=== PATIENT | female | born 1955 | race African-American/Black ===

== ENCOUNTER 2025-02-15 00:52 | Inpatient (IN) | payer BC, OTHER ==
[2025-02-15 01:45] LABS: ABSOLUTE IMMATURE GRANULOCYTES 0.02 x10^3/uL (0.0-0.031); BASOPHILS # 0.01 x10^3/uL (0.01-0.08); EOSINOPHIL % 0.3 % (0.7-5.8); EOSINOPHILS # 0.02 x10^3/uL (0.04-0.36); HEMATOCRIT 36.1 % (34.1-44.9); HEMOGLOBIN 11.6 g/dL (11.2-15.7); MCHC 32.1 g/dl (32.2-35.5); MEAN CELL VOLUME 98.9 fl (79.4-94.8); MEAN PLT VOLUME 11.3 fl (9.4-12.3); MONOCYTE # 0.33 x10^3/uL (0.24-0.86); MONOCYTE % 5.5 % (4.7-12.5); PLATELET COUNT 209 x10^3/uL (182-369); RDW 12.7 % (12.4-16.4)
[2025-02-15 01:53] LABS: INR 1.08 (0.83-1.09); PROTHROMBIN TIME (PATIENT) 11.9 SEC (9.7-13.0)
[2025-02-15 01:56] LABS: ACTIVATED PTT 28.9 SECONDS (25.2-36.5)
[2025-02-15 02:20] LABS: POTASSIUM 4.2 mmol/L (3.5-5.1)
[2025-02-15 02:22] LABS: ALBUMIN 3.4 g/dl (3.4-5.0); BLOOD UREA NITROGEN 18.6 mg/dL (7-18); CALCIUM 9.3 mg/dL (8.5-10.1)
[2025-02-15 02:25] LABS: CREATININE 0.7 mg/dL (0.55-1.3)
[2025-02-15 02:27] LABS: BILIRUBIN,TOTAL 0.3 mg/dL (0.2-1); TOT PROT 6.3 g/dl (6.4-8.2)
[2025-02-15] MEDS: SODIUM CHLORIDE 0.9% 500 ML INFUS.BAG IV ONE (03:52)
[2025-02-15] MEDS: SODIUM CHLORIDE 1,000 ML IV SCH (04:38)
[2025-02-15 05:00] LABS: ABSOLUTE IMMATURE GRANULOCYTES 0.02 x10^3/uL (0.0-0.031); BASOPHILS # 0.02 x10^3/uL (0.01-0.08); EOSINOPHIL % 0.3 % (0.7-5.8); EOSINOPHILS # 0.02 x10^3/uL (0.04-0.36); HEMATOCRIT 34.1 % (34.1-44.9); HEMOGLOBIN 10.8 g/dL (11.2-15.7); MCHC 31.7 g/dl (32.2-35.5); MEAN CELL VOLUME 100.6 fl (79.4-94.8); MONOCYTE # 0.38 x10^3/uL (0.24-0.86); MONOCYTE % 5.5 % (4.7-12.5); PLATELET COUNT 169 x10^3/uL (182-369); RDW 12.7 % (12.4-16.4)
[2025-02-15 06:21] LABS: EPI CELLS 9.5 /uL (0-25.1); URINE RBC 7987.6 /uL (0-23.9); URINE WBC 21.4 /uL (0-25.8)
[2025-02-15 06:22] LABS: HYALINE CASTS 0.51 /uL (0-3.1); URINE APPEARANCE CLOUDY; URINE BACTERIA 1105.8 /uL (0-1359); URINE BILIRUBIN NEGATIVE (NEGATIVE); URINE COLOR RED; URINE GLUCOSE (UA) NEGATIVE (NEGATIVE)
[2025-02-15 06:23] LABS: PH,URINE 7.5 (5.0-8.0); URINE KETONE NEGATIVE (NEGATIVE); URINE PROTEIN 3+ (NEGATIVE); URINE UROBILINOGEN 0.2 mg/dL (0.2-1.0)
[2025-02-15 06:24] LABS: URINE LEUK ESTERASE TRACE (NEGATIVE); URINE NITRITE NEGATIVE (NEGATIVE)
[2025-02-15 09:53] LABS: ABSOLUTE IMMATURE GRANULOCYTES 0.01 x10^3/uL (0.0-0.031); BASOPHILS # 0.01 x10^3/uL (0.01-0.08); EOSINOPHIL % 0.2 % (0.7-5.8); EOSINOPHILS # 0.01 x10^3/uL (0.04-0.36); HEMATOCRIT 31.9 % (34.1-44.9); HEMOGLOBIN 9.8 g/dL (11.2-15.7); MCHC 30.7 g/dl (32.2-35.5); MEAN CELL VOLUME 100.9 fl (79.4-94.8); RDW 12.7 % (12.4-16.4)
[2025-02-15 09:55] LABS: MONOCYTE # 0.29 x10^3/uL (0.24-0.86); MONOCYTE % 4.7 % (4.7-12.5)
[2025-02-15] MEDS: HYDROCORTISONE ACETATE 25 MG/SUPP.RECT RC ONE (10:16)
[2025-02-15] MEDS: SERTRALINE HCL 25 MG TABLET (FP) PO SCH (10:23)
[2025-02-15] MEDS: metoPROLOL SUCCINATE 25 MG TAB.SR.24H (FP) PO SCH (10:23)
[2025-02-15] MEDS: PANTOPRAZOLE SODIUM 40 MG VIAL IVPUSH SCH (10:23)
[2025-02-15 10:32] LABS: MAGNESIUM 2.1 mg/dL (1.8-2.4)
[2025-02-15 10:35] LABS: MEAN PLT VOLUME 12.7 fl (9.4-12.3); PLATELET COUNT 114 x10^3/uL (182-369)
[2025-02-15 12:21] VITALS: BMI 28.3
[2025-02-15] MEDS: ACETAMINOPHEN 1000 MG/100 ML BAG IVPB PRN (14:15)
[2025-02-15 16:30] LABS: HEMATOCRIT 29.5 % (34.1-44.9); HEMOGLOBIN 9.1 g/dL (11.2-15.7); MCHC 30.8 g/dl (32.2-35.5); MEAN PLT VOLUME 11.7 fl (9.4-12.3); PLATELET COUNT 188 x10^3/uL (182-369); RDW 12.9 % (12.4-16.4)
[2025-02-15] MEDS: HYDROCORTISONE ACETATE 25 MG/SUPP.RECT RC SCH (21:37)
[2025-02-16 05:39] LABS: HEMOGLOBIN 9.5 g/dL (11.2-15.7); MCHC 31.7 g/dl (32.2-35.5); MEAN CELL VOLUME 99.3 fl (79.4-94.8); MEAN PLT VOLUME 10.3 fl (9.4-12.3); PLATELET COUNT 176 x10^3/uL (182-369); RDW 12.9 % (12.4-16.4)
[2025-02-16 06:17] LABS: POTASSIUM 3.9 mmol/L (3.5-5.1)
[2025-02-16 06:19] LABS: ALBUMIN 3.1 g/dl (3.4-5.0); CALCIUM 8.4 mg/dL (8.5-10.1)
[2025-02-16 06:20] LABS: BLOOD UREA NITROGEN 6.4 mg/dL (7-18); MAGNESIUM 2.2 mg/dL (1.8-2.4)
[2025-02-16 06:24] LABS: BILIRUBIN,TOTAL 0.3 mg/dL (0.2-1); CREATININE 0.5 mg/dL (0.55-1.3); PHOSPHOROUS 3.5 mg/dL (2.5-4.9); TOT PROT 5.7 g/dl (6.4-8.2)
[2025-02-16] MEDS: BISACODYL 5 MG TABLET.DR (FP) PO ONE (15:02)
[2025-02-16] MEDS: PEG 3350/NA SULF BICARB CL/KCL 4000 ML SOLN.RECON PO ONE (18:09)
[2025-02-17 07:19] LABS: POTASSIUM 3.6 mmol/L (3.5-5.1)
[2025-02-17 07:26] LABS: CALCIUM 8.7 mg/dL (8.5-10.1)
[2025-02-17 07:27] LABS: ALBUMIN 3.2 g/dl (3.4-5.0); BLOOD UREA NITROGEN 3.9 mg/dL (7-18)
[2025-02-17 07:29] LABS: BILIRUBIN,TOTAL 0.3 mg/dL (0.2-1); TOT PROT 5.8 g/dl (6.4-8.2)
[2025-02-17 07:30] LABS: CREATININE 0.5 mg/dL (0.55-1.3)
[2025-02-17 07:32] LABS: HEMATOCRIT 29.8 % (34.1-44.9); HEMOGLOBIN 9.5 g/dL (11.2-15.7); MCHC 31.9 g/dl (32.2-35.5); MEAN CELL VOLUME 99.3 fl (79.4-94.8); MEAN PLT VOLUME 11.4 fl (9.4-12.3); PLATELET COUNT 185 x10^3/uL (182-369); RDW 12.6 % (12.4-16.4)
[2025-02-17] MEDS: ACETAMINOPHEN 1000 MG/100 ML BAG IVPB ONE (22:33)
[2025-02-18 09:31] VITALS: RESP 16
[2025-02-18 09:54] LABS: HEMATOCRIT 29.3 % (34.1-44.9); HEMOGLOBIN 9.4 g/dL (11.2-15.7); MCHC 32.1 g/dl (32.2-35.5); MEAN CELL VOLUME 99.3 fl (79.4-94.8); PLATELET COUNT 198 x10^3/uL (182-369); RDW 12.8 % (12.4-16.4)
[2025-02-18 10:13] LABS: POTASSIUM 3.9 mmol/L (3.5-5.1)
[2025-02-18 10:16] LABS: CALCIUM 9.4 mg/dL (8.5-10.1)
[2025-02-18 10:17] LABS: BLOOD UREA NITROGEN 4.8 mg/dL (7-18)
[2025-02-18 10:20] LABS: CREATININE 0.6 mg/dL (0.55-1.3)
[2025-02-18 11:50] VITALS: BP 122/54; PULSE 79; TEMP 97.5
== END 2025-02-18 12:44 | disposition home or self-care (01) | DRG 378 ==
LOC: JER 00:52 → JERBED 03:42 → UNDOADMOB 03:42 → J4W 05:11 → JERBED 06:39 → INTOOBSV 02-16 05:11 → OBSVTOIN 02-16 05:11
PROVIDERS: ADMIT Internal Medicine; ATTEND Internal Medicine
PROC: 0DJD8ZZ Inspection of Lower Intestinal Tract, Via Natural or Artificial Opening Endoscopic (ICD-10-PCS; principal; 2025-02-18 08:00)
DX: K62.5 Hemorrhage of anus and rectum (principal); D62 Acute posthemorrhagic anemia; K64.4 Residual hemorrhoidal skin tags; R10.13 Epigastric pain; R80.9 Proteinuria, unspecified; I10 Essential (primary) hypertension; R31.9 Hematuria, unspecified; F41.9 Anxiety disorder, unspecified; K57.30 Diverticulosis of large intestine without perforation or abscess without bleeding
CPT/HCPCS: 36415; 70450-TC; 70496-TC; 70498-TC; 74177-TC; 80048; 80053; 80061; 81003; 82272; 82607; 82728; 82746; 82962; 83036; 83540; 83550; 83605; 83690; 83735; 84100; 84484; 85025; 85027; 85610; 85730; 86850; 86900; 86901; 93005; 93010; 93306-TC; 99285-25; G0378; J0131; Q9967